=== PATIENT | male | born 1960 | race Caucasian/White ===

== ENCOUNTER 2017-07-03 11:54 | Day surgery (SDC) | payer OTHER ==
[2017-06-25 13:06] VITALS: BP 107/64
[2017-06-25 13:19] LABS: HEMATOCRIT 43.6 % (39.2-51.8); HEMOGLOBIN 14.8 g/dL (13.7-18.0); WHITE BLOOD COUNT 6.9 x10^3/uL (3.4-10)
[2017-06-25 13:31] LABS: BLOOD UREA NITROGEN 17 mg/dL (7-18)
[~2017-07-03] VITALS: Ht 190.5 cm; Wt 116.4 kg
[~2017-07-03 11:54] MED LIST: AMIO200T42 PO; ASPI-515 PO; CARV-39 PO; FURO40TA6 PO; LISI2.5T PO; OMEP20TA62 PO; SIMV40TA3 PO; SPIR25TA3 PO; WARF2.5T73 PO
[2017-07-03] MEDS ORDERED: SODIUM CHLORIDE 0.9% 1,000 ML IV SCH (12:54)
[2017-07-03] MEDS ORDERED: MIDAZOLAM 1 MG/ML, 5ML ONE (13:36)
[2017-07-03] MEDS ORDERED: CEFAZOLIN 1,000 MG ONE (13:36)
[2017-07-03] MEDS ORDERED: LIDOCAINE 2%, 20ML ONE (13:36)
[2017-07-03] MEDS ORDERED: CEFAZOLIN PMX 1GM/50ML 50 ML ONE ×2 (13:36→14:28)
[2017-07-03] MEDS ORDERED: FENTANYL PF 100 MCG/2ML ONE ×2 (13:36→14:19)
[2017-07-03] MEDS ORDERED: DOXY100T9 PO (14:56)
== END 2017-07-03 16:04 ==
LOC: CACL 11:54
PROVIDERS: ATTEND Internal Medicine Cardiovascular Disease
DX: Z45.02 Encounter for adjustment and management of automatic implantable cardiac defibrillator (principal); Z88.8 Allergy status to other drugs, medicaments and biological substances
CPT/HCPCS: 33263; 36415; 80048; 84443; 85025; 85610; 93005; 99156; 99157; C1721; J0690; J2250; J3010; J3490